=== PATIENT | male | born 1970 | race Caucasian/White ===

== ENCOUNTER 2016-07-28 22:34 | Emergency (ER) | payer OTHER ==
[2016-07-29 00:16] LABS: CREATININE 0.9 mg/dL (0.7-1.2); POTASSIUM 3.6 mmol/L (3.5-5.1)
== END 2016-07-29 01:34 | disposition home or self-care (01) ==
LOC: FER 22:34
PROVIDERS: Emergency Medicine
DX: M54.16 Radiculopathy, lumbar region (principal); I10 Essential (primary) hypertension; G89.29 Other chronic pain; Z87.39 Personal history of other diseases of the musculoskeletal system and connective tissue; Z79.82 Long term (current) use of aspirin; Z79.891 Long term (current) use of opiate analgesic; Z79.899 Other long term (current) drug therapy; Z95.5 Presence of coronary angioplasty implant and graft; Z98.890 Other specified postprocedural states
CPT/HCPCS: 36415; 80048; J1100; J1170; J1885